=== PATIENT | male | born 1990 | race Two or more races ===

== ENCOUNTER 2017-05-30 01:17 | Emergency (ER) | payer OTHER ==
[~2017-05-30] VITALS: Ht 177.8 cm; Wt 77.1 kg
--- NOTE | 2017-05-30 01:20 | NUR ---
TO BED 8 A 26 YO MALE PATIENT BB RA FROM HOME FOR HEROIN WITHDRAWAL. NAD NOTED. VSS. BREATHING EVEN AND UNLABORED. GOWNED. SAFETY AND COMFORT MEASURES RENDERED. PLACED ON VS MONITORING.
--- NOTE | 2017-05-30 02:15 | NUR ---
DR. RODRIGUEZ AT BEDSIDE
--- NOTE | 2017-05-30 03:21 | NUR ---
PATIENT IS SLEEPING COMFORTABLY IN BED, VSS, NAD NOTED. ONGOING MONITORING.
--- NOTE | 2017-05-30 06:50 | NUR ---
Patient discharged to home in stable condition. Written and verbal after care instructions given. Patient verbalizes understanding of instruction. Patient is ambulatory with a steady gait. No further complaints.
[2017-05-30 06:54] VITALS: BP 120/74
== END 2017-05-30 06:54 | disposition home or self-care (01) ==
LOC: ER 01:18
DX: F11.23 Opioid dependence with withdrawal (principal)
CPT/HCPCS: 99283; A4606; Z7610